=== PATIENT | female | born 2000 | race Caucasian/White ===

== ENCOUNTER 2018-12-16 18:01 | Emergency (ER) | payer MEDICAID ==
[2018-12-16 18:35] VITALS: BP 143/83
--- NOTE | 2018-12-16 18:41 | EDM.PDOC ---
ED HPI GENERAL MEDICAL PROBLEM - General Chief Complaint: ENT Problem Stated Complaint: LEFT EAR PAIN Time Seen by Provider: 12/16/18 18:37 Source of Information: Reports: Patient History Limitations: Reports: No Limitations - History of Present Illness INITIAL COMMENTS - FREE TEXT/NARRATIVE: pt arrived with pain in the left ear. @-3 days ago she had a sore throat. She has not checked her temp. Onset: Other (started 3 days ago. ) Duration: Hour(s): Location: Reports: Face, Neck Associated Symptoms: Reports: No Other Symptoms, Cough - Related Data Allergies Allergy/AdvReac Type Severity Reaction Status Date / Time No Known Allergies Allergy Verified 12/16/18 18:30 Home Meds: Home Meds NK [No Known Home Meds] 01/12/14 [History] Past Medical History - Past Health History Medical/Surgical History: Denies Medical/Surgical History Other Gastrointestinal History: Hernia - Past Surgical History GI Surgical History: Reports: Hernia, Abdominal Social & Family History - Tobacco Use Smoking Status *Q: Never Smoker ED ROS ENT - Review of Systems Review Of Systems: See Below Constitutional: Reports: Chills HEENT: Reports: Ear Pain, Other (pt has been having pain in the left ear. ) Respiratory: Reports: No Symptoms Cardiovascular: Reports: No Symptoms Endocrine: Reports: No Symptoms GI/Abdominal: Reports: No Symptoms : Reports: No Symptoms Musculoskeletal: Reports: No Symptoms Skin: Reports: No Symptoms ED EXAM, ENT - Physical Exam Exam: See Below Text/Narrative:: pt arrived with pain in the left ear and a sore throat that started 3 daysago. Exam Limited By: No Limitations General Appearance: Alert, Moderate Distress Ears: Other ( left drum is not red but there is a small amount of fluid behind the drum) Nose: Normal Inspection Mouth/Throat: Tonsillar Erythema, Tonsillar Exudates Head: Atraumatic Neck: Lymphadenopathy (L) Respiratory/Chest: No Respiratory Distress Cardiovascular: Regular Rate, Rhythm Course - Vital Signs Last Recorded V/S: Last Vital Signs Temp 36.8 C 12/16/18 18:34 Pulse 82 12/16/18 18:34 Resp 14 12/16/18 18:34 BP 143/83 H 12/16/18 18:34 Pulse Ox 98 12/16/18 18:34 - Orders/Labs/Meds Orders: Active Orders 24 hr Category Date Time Status CULTURE STREP A CONFIRMATION [RM] Stat Lab 12/16/18 18:43 Results STREP SCRN A RAPID W CULT CONF [RM] Stat Lab 12/16/18 18:43 Results Labs: Laboratory Tests 12/16/18 Range/Units 18:37 WBC 8.3 (4.5-11.0) K/uL RBC 4.99 (3.30-5.50) M/uL Hgb 13.8 (12.0-15.0) g/dL Hct 41.7 (36.0-48.0) % MCV 84 (80-98) fL MCH 28 (27-31) pg MCHC 33 (32-36) % Plt Count 306 (150-400) K/uL Neut % (Auto) 59 (36-66) % Lymph % (Auto) 29 (24-44) % [place]ley % (Auto) 11 H (2-6) % Eos % (Auto) 2 (2-4) % Baso % (Auto) 0 (0-1) % - Re-Assessments/Exams Free Text/Narrative Re-Assessment/Exam: 12/16/18 19:00 pt had a neg strept and a normal wbc. Departure - Departure Time of Disposition: 19:01 Disposition: Home, Self-Care 01 Condition: Fair Clinical Impression: Serous otitis media - Discharge Information Referrals: Maximiliano Jones MD [Primary Care Provider] - Forms: ED Department Discharge Care Plan Goals: cool mist humidifier, push fluids, Motrin 600mg q6h prn for pain in the left ear , amoxicillin 500mg tid for 10 day, tonight try to get 2 doses in. While on antibuiotics us yogurt or probiotic. - My Orders Last 24 Hours: My Active Orders 12/16/18 18:43 CULTURE STREP A CONFIRMATION [RM] Stat STREP SCRN A RAPID W CULT CONF [RM] Stat - Assessment/Plan Last 24 Hours: My Active Orders 12/16/18 18:43 CULTURE STREP A CONFIRMATION [RM] Stat STREP SCRN A RAPID W CULT CONF [RM] Stat
== END 2018-12-16 19:10 | disposition home or self-care (01) ==
LOC: JP.ED 18:01
DX: H65.92 Unspecified nonsuppurative otitis media, left ear (principal)
CPT/HCPCS: 36415; 85025; 87081; 87430; 99283

== ENCOUNTER 2019-06-22 05:45 | Day surgery (SDC) | payer MEDICAID ==
[2019-06-22] MEDS ORDERED: Dextrose 5%-Lactated Ringers 1,000 ML IV SCH (06:00)
[2019-06-22] MEDS ORDERED: Glycopyrrolate 0.2 MG/ML 2 ML SDV IVPUSH ONE (06:30)
[2019-06-22] MEDS ORDERED: Propofol 200 MG/20 ML SDV ONE (07:06)
[2019-06-22] MEDS ORDERED: fentaNYL 100 MCG/2 ML SDV ONE (07:06)
[2019-06-22] MEDS ORDERED: Midazolam 1 MG/ML 2 ML SDV ONE (07:06)
[2019-06-22 11:02] VITALS: BP 114/71; PULSE 88
--- NOTE | 2019-06-28 12:21 | OR ---
DATE OF PROCEDURE: 06/22/2019 SURGEON: Anastacio Valladares MD PREOPERATIVE DIAGNOSES: Epigastric discomfort and nausea. POSTOPERATIVE DIAGNOSES: Epigastric discomfort and nausea associated with, 1. Large gastric bezoar. 2. Mild antral gastritis. OPERATIVE PROCEDURE: Esophagogastroduodenoscopy with biopsies of antrum for CLOtest. ANESTHESIA: IV sedation. INDICATION FOR PROCEDURE: The patient presents with ongoing epigastric discomfort and nausea. She presently has been on Protonix 40 mg daily, but has not taken that now since around 06/01/2019. She also had previously been prescribed Zofran, which she has also not taken since around 06/08/2019. The plan is to proceed with upper GI endoscopy with biopsies as indicated. Potential risks including bleeding and perforation were discussed, and the patient wishes to proceed. DETAILS OF PROCEDURE: The patient was taken to the operating room and placed in a left lateral decubitus position. IV sedation was administered, after which the upper GI endoscope was passed orally through the length of the esophagus and into the stomach with retroflexion view of the fundus, and thereafter through the pyloric channel and into the junction of the third and fourth portions of the duodenum. Findings included normal hypopharynx, larynx, upper esophageal sphincter, and esophageal body. At the EG junction, no significant hiatal hernia or inflammation was noted. As one entered the stomach, the patient did have a quite striking large gastric bezoar. This appeared to be predominantly a phytobezoar, i.e., old matter aggregated into loose mass affect. This was associated with some redness in the antrum. The pyloric channel was widely open, i.e., there was no evidence of any gastric outlet obstruction, and the visualized portions of the duodenum were unremarkable. At this point, biopsies were obtained from the antrum and sent for CLOtest for H pylori. Minimal bleeding from the biopsy sites was seen, and the procedure then concluded. 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 We will have Dietary review the anti-bezoar diet with the patient and mother, and also prescribe the patient Zithromax 125 mg daily to augment GI tract motility. We will see the patient back in 1 month for a repeat upper endoscopy to see if the bezoar has been eliminated, at which time, we might try getting off some of the medical management such as Zithromax and/or Protonix based on those findings, with the assumption that the modification to diet might at that point be adequate. Anastacio Valladares MD /[id number]
== END 2019-06-22 09:00 | disposition home or self-care (01) ==
LOC: JP.SDS 05:45
PROVIDERS: ATTEND Surgery
DX: T18.2XXA Foreign body in stomach, initial encounter (principal); K29.70 Gastritis, unspecified, without bleeding; F32.9 Major depressive disorder, single episode, unspecified; E66.9 Obesity, unspecified; Z91.040 Latex allergy status; Z68.34 Body mass index [BMI] 34.0-34.9, adult
CPT/HCPCS: 43239; 87081; J2250; J2704; J3010; J3490; J7042

== ENCOUNTER → 2019-07-23 | Day surgery (SDC) | payer MEDICAID ==
[~2019-07-23] MED LIST: Dextrose 5%-Lactated Ringers 1,000 ML IV SCH; Glycopyrrolate 0.2 MG/ML 2 ML SDV IVPUSH ONE; Midazolam 1 MG/ML 2 ML SDV ONE; Propofol 200 MG/20 ML SDV ONE; fentaNYL 100 MCG/2 ML SDV ONE
[2019-07-23 09:09] VITALS: BP 112/76; PULSE 78
--- NOTE | 2019-08-03 12:50 | OR ---
DATE OF PROCEDURE: 07/23/2019 SURGEON: Anastacio Valladares MD PREOPERATIVE DIAGNOSIS: History of gastric bezoar. POSTOPERATIVE DIAGNOSES: 1. Persistent gastric bezoar. 2. Antral gastritis. OPERATIVE PROCEDURES: Esophagogastroduodenoscopy with: 1. Evacuation of gastric bezoar (69158). 2. Biopsy of the antrum for CLOtest ([id number]). ANESTHESIA: IV sedation. INDICATIONS FOR PROCEDURE: This is a 19-year-old female presenting with history of gastric bezoar diagnosed several weeks ago. She has been on anti-bezoar diet and has been prescribed some proton pump inhibitor for the upper abdominal discomfort, but has not been taking that regularly. She remains nauseated with some vague upper abdominal discomfort. Plan is to proceed with upper GI endoscopy with biopsies and/or dilation as indicated, along with potential evacuation of the gastric bezoar. Potential risks of the procedure including bleeding, perforation, possibility of aspiration of gastric contents during the procedure were gone over, and the patient wishes to proceed. DETAILS OF PROCEDURE: The patient was taken to the operating room, placed in a left lateral decubitus position. IV sedation was administered, after which the upper GI endoscope was passed orally through the length of the esophagus and into the stomach with retroflexion view of the fundus, and thereafter through the pyloric channel to the junction of the third and fourth portions of the duodenum. Findings included normal hypopharynx, larynx, upper esophageal sphincter, and esophageal body. At the EG junction, no significant hiatal hernia was evident and there was minimal, if any, post inflammation. Within the stomach, there was some persistent bezoar. This appeared to be somewhat less in terms of volume compared to previous exam. This was associated with patchy redness in the antrum. Otherwise, the gastric exam was unremarkable, as was the pyloric channel and the visualized portions of the duodenum. At this point, the bezoar was potentially broken up and manipulated into the duodenum through the pyloric channel with virtually all of the bezoar except for few fragments being evacuated. Biopsies obtained from the antrum and sent for CLOtest for H. pylori. Minimal bleeding from the biopsy site was seen and the procedure was then concluded. The patient will return for a nuclear medicine gastric emptying study later this week. She will be instructed to stay off the Zithromax until after the gastric emptying study has been completed, so as to avoid making the interpretation of the exam less straightforward, and we will see the patient back after the gastric emptying exam is done. Specifically, we will see her in followup on 07/25/2019. Anastacio Valladares MD /[id number]
== END ==
LOC: JP.SDS 05:23
PROVIDERS: ATTEND Surgery
DX: T18.2XXA Foreign body in stomach, initial encounter (principal); K29.70 Gastritis, unspecified, without bleeding; K21.9 Gastro-esophageal reflux disease without esophagitis; E66.9 Obesity, unspecified; Z91.040 Latex allergy status; Z68.33 Body mass index [BMI] 33.0-33.9, adult
CPT/HCPCS: 43239; 43247; 81025; 87081; J2250; J2704; J3010; J3490; J7042

== ENCOUNTER 2020-06-20 07:27 | Day surgery (SDC) | payer MEDICAID ==
[~2020-06-20 07:27] MED LIST changes: +Dexamethasone 4 MG/ML SDV ONE; -Dextrose 5%-Lactated Ringers 1,000 ML IV SCH; -Glycopyrrolate 0.2 MG/ML 2 ML SDV IVPUSH ONE; +Glycopyrrolate 0.2 MG/ML 5 ML MDV ONE; +Meropenem 500 MG SDV ONE; -Midazolam 1 MG/ML 2 ML SDV ONE; +Neostigmine Methylsulfate 1 MG/ML 5 ML Syringe ONE; +Ondansetron 4 MG/2 ML SDV ONE; +Rocuronium 50 MG/5 ML Vial ONE; -fentaNYL 100 MCG/2 ML SDV ONE; +fentaNYL 250 MCG/5 ML SDV ONE
[2020-06-20] MEDS ORDERED: Acetaminophen 500 MG Tab PO ONE (07:45)
[2020-06-20] MEDS ORDERED: Ketorolac 60 MG/2 ML SDV ONE (08:07)
[2020-06-20] MEDS ORDERED: Dextrose 5%-Lactated Ringers 1,000 ML IV SCH (08:15)
[2020-06-20] MEDS ORDERED: fentaNYL 100 MCG/2 ML SDV ONE (08:39)
[2020-06-20] MEDS ORDERED: Bupivacaine 0.5%/EPINEPHrine 1:200,000 50 ML MDV ONE (08:43)
[2020-06-20] MEDS ORDERED: ceFAZolin 2 GM in Premix Bag 1 BAG IV ONE (08:45)
[2020-06-20] MEDS ORDERED: Ketamine 500 MG/5 ML MDV IV SCH (09:00)
[2020-06-20] MEDS ORDERED: Ketamine 50 MG in Sodium Chloride 0.9% 49.5 ML IV SCH (09:00)
[2020-06-20] MEDS ORDERED: Lactated Ringers 1,000 ML ONE (09:18)
[2020-06-20] MEDS ORDERED: Naloxone 0.4 MG/ML SDV ONE (09:30)
[2020-06-20] MEDS ORDERED: Acetaminophen/HYDROcodone 325-5 MG Tab PO ONE (10:23)
[2020-06-20 11:13] VITALS: BP 112/72; PULSE 83
--- NOTE | 2020-06-25 13:32 | OR ---
DATE OF PROCEDURE: 06/20/2020 SURGEON: Anastacio Valladares MD PREOPERATIVE DIAGNOSIS: Incarcerated recurrent umbilical hernia. POSTOPERATIVE DIAGNOSES: 1. Incarcerated recurrent umbilical hernia. 2. Extensive intraabdominal adhesions. OPERATIVE PROCEDURE: Diagnostic laparoscopy with: 1. Repair of incarcerated recurrent umbilical hernia with mesh ([id number]). 2. Placement of Interceed mesh to limit recurrent adhesion formation between the abdominal and pelvic wall and underlying viscera. ANESTHESIA: General. GLASS BLOWING LATHE OPERATOR: Nikki Wilson PA-C INDICATIONS FOR PROCEDURE: This is a 20-year-old presenting with recurrent umbilical hernia which was previously repaired with an open approach. Plan is to proceed with laparoscopic or, if necessary, open approach with repair of this with mesh. Potential risks including bleeding, infection, injury to underlying viscera, problems with mesh becoming infected, or the hernia recurring were reviewed, and the patient wishes to proceed. DETAILS OF PROCEDURE: The patient was taken to the operating room and placed in a supine position. After general endotracheal anesthesia was induced, Mai catheter was inserted (this was removed at the end of the procedure), and the abdomen prepped and draped. In the left lateral abdomen, a transverse incision was made and the peritoneal cavity entered under direct vision with an Optiview trocar and inflated to 15 mmHg pressure with CO2. Two additional left-sided 5 mm trocars were then placed and the abdomen examined. There was quite a bit in the way of adhesions between the omentum and the overlying abdominal wall, including the area of the previous hernia site. These were taken down with the Harmonic scalpel. At this point, using a combination of Harmonic scalpel starting from within and external pressure, the incarcerated hernia was reduced. This contained some omentum, as well as preperitoneal fat, and the hernia contents were excised and sent for pathologic exam. The defect itself was fairly small, measuring around 1 cm. Given this, about a [address] mesh with balloon positioning system was selected. This was soaked in antibiotic-containing saline solution and placed in intraperitoneal location through a small stab wound just below the umbilicus. The inflation catheter was brought through the abdominal wall and the balloon inflated, thus bringing the mesh up against the abdominal wall. It was then affixed circumferentially with absorbable tacking screws. The balloon was then deflated and withdrawn. Good fixation of the mesh was confirmed. To limit recurrent adhesion formation, Interceed mesh was then placed underneath the newly placed mesh, as well as along the lower abdomen and pelvis, thus displacing those surfaces from the underlying viscera. The trocars were then sequentially removed. The fascia at the 12 mm site was closed with 0 Vicryl stitch at the fascial level, and at each incision, 4-0 Vicryl skin stitch was used. Prior to closure, bilateral transversus abdominis plane blocks had been placed and the incisions were all anesthetized with 0.5% Marcaine. The patient was taken to the recovery room in satisfactory condition. Physician residential real estate assistant, Nikki Wilson, played an essential role in assisting in this case, helping to position the patient, retract structures as needed, as well as suturing and cutting sutures when indicated. Her presence improved the patient's safety and decreased operative time. Anastacio Valladares MD /[id number]
== END 2020-06-20 11:30 | disposition home or self-care (01) ==
LOC: JP.SDS 07:27
PROVIDERS: ATTEND Surgery
DX: K42.0 Umbilical hernia with obstruction, without gangrene (principal); E66.9 Obesity, unspecified; G47.00 Insomnia, unspecified; Z98.890 Other specified postprocedural states; Z87.891 Personal history of nicotine dependence; Z91.040 Latex allergy status; Z68.33 Body mass index [BMI] 33.0-33.9, adult; Z79.899 Other long term (current) drug therapy
CPT/HCPCS: 36415; 49653; 80048; 81025; 83735; 84100; 85027; 88302; A9270; C1713; C1781; J0171; J0690; J1100; J1885; J2020; J2185; J2310; J2405; J2704; J2710; J2795; J3010; J3490; J7050; J7120; J7121

== ENCOUNTER 2021-02-25 04:35 | Inpatient (IN) | payer MEDICAID ==
[2021-02-25] MEDS ORDERED: Sodium Chloride 0.9% 1,000 ML IV ONE (05:43)
[2021-02-25] MEDS ORDERED: Ondansetron 4 MG/2 ML SDV IVPUSH ONE (05:43)
[2021-02-25] MEDS ORDERED: Misoprostol 50 MCG (1/2 of 100 MCG) Tab VAG ONE ×2 (07:40→11:38)
[2021-02-25] MEDS ORDERED: Misoprostol 50 MCG (1/2 of 100 MCG) Tab ONE (07:41)
[2021-02-25] MEDS ORDERED: Sodium Chloride 0.9% 10 ML Syringe FLUSH PRN (07:50)
[2021-02-25] MEDS ORDERED: fentaNYL 100 MCG/2 ML SDV IVPUSH PRN (07:50)
[2021-02-25] MEDS ORDERED: Penicillin G Potassium 5 MILLUNITS in Sodium Chloride 0.9% 100 ML IV ONE (08:00)
--- NOTE | 2021-02-25 08:01 | PCM.LDHP ---
L&D History of Present Illness - General Date of Service: 02/25/21 (induction of labor. ) Admit Problem/Dx: Patient Status Order with Admit Dx/Problem 02/25/21 07:50 Patient Status [ADT] Routine Admission Diagnosis/Problem Admission Diagnosis/Problem and not yet delivered Source of Information: Patient History Limitations: Reports: No Limitations - History of Present Illness Introduction:: Has not felt well for several days. naif on and off, lost mucous plug. Baby moving. has a cough and nauseated. Timing/Duration: Reports: intermittent Location, : Reports: Abdomen Severity: Mild Improves with: Reports: None Worsens with: Reports: None - Related Data Allergies/Adverse Reactions: Allergies Allergy/AdvReac Type Severity Reaction Status Date / Time latex Allergy Rash Verified 02/14/21 17:59 Home Medications: Home Meds Metoclopramide HCl [Reglan] 10 mg PO TIDAC PRN 06/18/20 [History] Ondansetron [Zofran ODT] 4 mg PO Q8H PRN 06/18/20 [History] Pnv No.95/Ferrous Fum/Folic AC [ Caplet] 1 tab PO DAILY 02/14/21 [History] Past Medical History - Past Health History Medical/Surgical History: Denies Medical/Surgical History HEENT History: Reports: Impaired Vision, Other (See Below) Other HEENT History: wears glasses Cardiovascular History: Reports: None Respiratory History: Reports: None Gastrointestinal History: Reports: GERD Other Gastrointestinal History: Hernia Genitourinary History: Reports: UTI, Recurrent ENVIRONMENTAL HEALTH SAFETY MANAGER History: Reports: None, : 1 Para: 0 LMP (Approximate): (MARILEE 03/01/21 39 4/7) Musculoskeletal History: Reports: Back Pain, Chronic Neurological History: Reports: None Psychiatric History: Reports: Anxiety, Depression Endocrine/Metabolic History: Reports: Obesity/BMI 30+ Hematologic History: Reports: None Immunologic History: Reports: None Oncologic (Cancer) History: Reports: None Dermatologic History: Reports: None - Infectious Disease History Infectious Disease History: Reports: Chicken Pox - Past Surgical History HEENT Surgical History: Reports: None GI Surgical History: Reports: EGD, Hernia, Abdominal Female Surgical History: Reports: None Endocrine Surgical History: Reports: None Musculoskeletal Surgical History: Reports: None Dermatological Surgical History: Reports: None Social & Family History - Family History Family Medical History: No Pertinent Family History - Caffeine Use Caffeine Use: Reports: Soda H&P Review of Systems - Review of Systems: Review Of Systems: See Below General: Reports: No Symptoms HEENT: Reports: No Symptoms Pulmonary: Reports: Cough Cardiovascular: Reports: No Symptoms Gastrointestinal: Reports: Nausea Genitourinary: Reports: No Symptoms Musculoskeletal: Reports: No Symptoms Skin: Reports: No Symptoms Psychiatric: Reports: No Symptoms Neurological: Reports: No Symptoms Hematologic/Lymphatic: Reports: No Symptoms Immunologic: Reports: No Symptoms L&D Exam - Exam Exam: See Below - Vital Signs Vital Signs: Last Vital Signs Temp 98.7 F 02/25/21 07:17 Pulse 75 02/25/21 07:17 Resp 16 02/25/21 07:17 BP 120/84 02/25/21 07:17 Pulse Ox 98 02/25/21 07:17 - OB Specific Contraction Duration (sec): 40 Contraction Frequency (min): x1 Contraction Intensity: Mild Movement: Active Heart Tones: Present Heart Rate (FHR) Variability: Moderate (6-25 bmp) Presentation: Vertex Estimated Weight: 7 pounds - Nguyen Score Nguyen Score Cervix Position: Midposition Nguyen Score Consistency: Soft Nguyen Score Effacement: >80% Nguyen Score Dilation: 3-4 cm Nguyen Score Infant's Station: -1 ,0 Nguyen Score Total: 10 - Exam General: Alert, Oriented HEENT: PERRLA, Mucosa Moist & [place] Neck: Supple Lungs: Clear to Auscultation, Normal Respiratory Effort Cardiovascular: Regular Rate, Regular Rhythm GI/Abdominal Exam: Soft, Non-Tender Genitourinary: Normal external exam, Cervical dilitation, Enlarged uterus Back Exam: Normal Inspection Extremities: No Pedal Edema, Normal Capillary Refill Skin: Warm, Dry Neurological: Cranial Nerves Intact Psychiatric: Alert, Normal Affect, Normal Mood - Patient Data Lab Results Last 24 hrs: Laboratory Results - last 24 hr 02/25/21 Range/Units 04:41 Urine Color Yellow (YELLOW) Urine Appearance Cloudy A (CLEAR) Urine pH 6.0 (5.0-8.0) Ur Specific [place] 1.020 (1.008-1.030) Urine Protein 30 H (NEGATIVE) mg/dL Urine Glucose (UA) Negative (NEGATIVE) mg/dL Urine Ketones >=160 H (NEGATIVE) mg/dL Urine Occult Blood Small H (NEGATIVE) Urine Nitrite Negative (NEGATIVE) Urine Bilirubin Moderate H (NEGATIVE) Urine Urobilinogen 2.0 H (0.2-1.0) EU/dL Ur Leukocyte Esterase Small H (NEGATIVE) Urine RBC 0-5 (0-5) Urine WBC 0-5 (0-5) Ur Epithelial Cells Many Amorphous Sediment Not seen Urine Bacteria Few Urine Mucus Not seen - Problem List (1) SNOMED Code(s): 60115324 ICD Code: Z34.90 - ENCNTR FOR SUPRVSN OF NORMAL , UNSP, UNSP TRIMESTER Status: Acute Current Visit: Yes Qualifiers: Weeks of gestation: 39 weeks Qualified Code(s): Z3A.39 - 39 weeks gestation of (2) GBS (group B Streptococcus carrier), +RV culture, currently SNOMED Code(s): 2047170209829, 825971377, 6690811626421 ICD Code: O99.820 - STREPTOCOCCUS B CARRIER STATE COMPLICATING Status: Acute Current Visit: Yes (3) Cough SNOMED Code(s): 80989344 ICD Code: R05 - COUGH Status: Acute Current Visit: Yes Problem List Initiated/Reviewed/Updated: Yes Orders Last 24hrs: Active Orders 24 hr Category Date Time Status Patient Status [ADT] Routine ADT 02/25/21 07:50 Ordered Antiembolic Devices [RC] .Routine Care 02/25/21 07:54 Ordered Communication Order [RC] ASDIRECTED Care 02/25/21 07:50 Ordered Heart Tones [RC] PER UNIT ROUTINE Care 02/25/21 07:50 Ordered Non Stress Test [RC] Click to Edit Care 02/25/21 07:50 Ordered Notify Provider Vital Signs [RC] PRN Care 02/25/21 07:50 Ordered Notify Provider [RC] PRN Care 02/25/21 07:50 Ordered OB Check [OM.PC] Click to Edit Care 02/25/21 04:40 Ordered Up ad Joanie [RC] ASDIRECTED Care 02/25/21 07:50 Ordered VTE/DVT Education [RC] Click to Edit Care 02/25/21 07:54 Ordered Vital Signs [RC] PER UNIT ROUTINE Care 02/25/21 07:50 Ordered CBC W/O DIFF,HEMOGRAM [HEME] Routine Lab 02/25/21 07:50 Ordered DRUG SCREEN, URINE [URCHEM] Routine Lab 02/25/21 07:50 Ordered Oxytocin/Normal Saline [Pitocin in NS 20 Units/1,000 ML Med 02/25/21 07:49 Ordered ] 20 unit in 1,000 ml IV ONETIME Penicillin G Potassium [Pfizerpen] 2.5 millunits Med 02/25/21 08:00 Ordered Sodium Chloride 0.9% [Normal Saline] 50 ml IV Q4H Penicillin G Potassium [Pfizerpen] 5 millunits Med 02/25/21 07:48 Ordered Sodium Chloride 0.9% [Normal Saline] 100 ml IV ONETIME Sodium Chloride 0.9% [Saline Flush] Med 02/25/21 07:50 Ordered 10 ml FLUSH ASDIRECTED PRN fentaNYL [Sublimaze] Med 02/25/21 07:50 Ordered 100 mcg IVPUSH Q1H PRN miSOPROStoL [Cytotec] Med 02/25/21 07:40 Once 50 mcg VAG ONETIME ONE DVT/VTE Prophylaxis Reflex [OM.PC] Routine Oth 02/25/21 07:50 Ordered Saline Lock Insert [OM.PC] Routine Oth 02/25/21 07:50 Ordered Resuscitation Status Routine Resus Stat 02/25/21 07:50 Ordered Medication Orders Penicillin G Potassium 5 (millunits/ Sodium Chloride) 100 mls @ 200 mls/hr IV ONETIME ONE Stop: 02/25/21 08:29 Penicillin G Potassium 2.5 (millunits/ Sodium Chloride) 50 mls @ 100 mls/hr IV Q4H JAMES Oxytocin/Sodium Chloride (Pitocin In Ns 20 Units/1,000 Ml) 20 unit in 1,000 mls @ 999 mls/hr IV ONETIME ONE; Protocol Stop: 02/25/21 08:49 Misoprostol (Misoprostol 50 Mcg (1/2 Of 100 Mcg) Tab) 50 mcg VAG ONETIME ONE Stop: 02/25/21 07:41 Assessment/Plan Comment:: 02/25/21 39 4/7 week IUP latent labor, reactive NST, CE: 3/80/-1 soft mid position, bishops score 10 cough and not feeling well for days GBS positive ABO O neg, had Rhogam at 29 weeks She would like to have the baby Plan Misoprostol this morning AROM after lunch Treat GBS rehydrate monitor for active labor
[2021-02-25] MEDS ORDERED: Sodium Chloride 0.9% 500 ML IV ONE (09:00)
[2021-02-25] MEDS ORDERED: Ondansetron 4 MG/2 ML SDV IVPUSH PRN (10:04)
[2021-02-25] MEDS: Penicillin G Potassium 2.5 MILLUNITS in Sodium Chloride 0.9% 50 ML IV SCH ×2 (12:04→19:13)
--- NOTE | 2021-02-25 12:05 | PCM.PNLD ---
Labor Progress Note - VS & Meds Vital Signs: Last Vital Signs Temp 98.7 F 02/25/21 07:17 Pulse 75 02/25/21 07:17 Resp 16 02/25/21 07:17 BP 120/84 02/25/21 07:17 Pulse Ox 98 02/25/21 07:17 Active Medications: Current Medications Fentanyl (Fentanyl 100 Mcg/2 Ml Sdv) 100 mcg IVPUSH Q1H PRN PRN Reason: Pain (moderate 4-6) Penicillin G Potassium 2.5 (millunits/ Sodium Chloride) 50 mls @ 100 mls/hr IV Q4H JAMES Ondansetron HCl (Ondansetron 4 Mg/2 Ml Sdv) 4 mg IVPUSH Q4H PRN PRN Reason: Nausea/Vomiting Last Admin: 02/25/21 10:28 Dose: 4 mg Documented by: Sodium Chloride (Sodium Chloride 0.9% 10 Ml Syringe) 10 ml FLUSH ASDIRECTED PRN PRN Reason: Keep Vein Open Discontinued Medications Sodium Chloride (Normal Saline) 1,000 mls @ 999 mls/hr IV .BOLUS ONE Stop: 02/25/21 06:43 Last Admin: 02/25/21 05:53 Dose: 999 mls/hr Documented by: Penicillin G Potassium 5 (millunits/ Sodium Chloride) 100 mls @ 200 mls/hr IV ONETIME ONE Stop: 02/25/21 08:29 Last Admin: 02/25/21 08:14 Dose: 200 mls/hr Documented by: Oxytocin/Sodium Chloride (Pitocin In Ns 20 Units/1,000 Ml) 20 unit in 1,000 mls @ 999 mls/hr IV ONETIME ONE; Protocol Stop: 02/25/21 08:49 Sodium Chloride (Normal Saline) 500 mls @ 500 mls/hr IV .BOLUS ONE Stop: 02/25/21 09:59 Misoprostol (Misoprostol 50 Mcg (1/2 Of 100 Mcg) Tab) Confirm Administered Dose 50 mcg .ROUTE .STK-MED ONE Stop: 02/25/21 07:42 Last Admin: 02/25/21 08:14 Dose: Not Given Documented by: Misoprostol (Misoprostol 50 Mcg (1/2 Of 100 Mcg) Tab) 50 mcg VAG ONETIME ONE Stop: 02/25/21 07:41 Last Admin: 02/25/21 07:45 Dose: 50 mcg Documented by: Misoprostol (Misoprostol 50 Mcg (1/2 Of 100 Mcg) Tab) 25 mcg VAG ONETIME ONE Stop: 02/25/21 11:39 Ondansetron HCl (Ondansetron 4 Mg/2 Ml Sdv) 4 mg IVPUSH ONETIME ONE Stop: 02/25/21 05:44 Last Admin: 02/25/21 05:55 Dose: 4 mg Documented by: - Uterine Contractions Uterine Monitoring Mode: External [place] Contraction Frequency (min): 2-8 Contraction Duration (sec): 40-70 Contraction Intensity: Mild Uterine Resting Tone: Soft - Monitoring Monitor Mode: Doppler/Auscultation Heart Rate (FHR) Baseline: 120 Heart Rate (FHR) Variability: Moderate (6-25 bmp) Accelerations: Present, 15x15 Decelerations: None Strip Review: Category I - Vaginal Exam Dilation (cm): 4 Effacement (Percent): 90 Station: 0 Cervical Position: Midposition Sterile Vaginal Exam Performed By: Wendy Gonzalez Vaginal Exam Comment: AROM clear fluid - Labor Progress (Free Text) Labor Progress: Cat one strip baseline FHT 120 CE 4-90-0 AROM clear fluid Can be up and about Nitrous for pain management Plan for vaginal delivery
[2021-02-25] MEDS ORDERED: Lidocaine 1% 50 ML MDV ONE (14:39)
[2021-02-25] MEDS ORDERED: Hydrocortisone 2.5% Crm 30 GM Tube TOP PRN (15:15)
--- NOTE | 2021-02-25 15:28 | PCM.DEL ---
L & D Note - General Info Date of Service: 02/25/21 Mother's Due Date: 03/01/21 - Delivery Note Labor: Spontaneous Cervical Ripening Method: Misoprostil Delivery Outcome: Livebirth Delivery Method: Spontaneous Vaginal Delivery-Single Infant Delivery Mode: Spontaneous Presentation: Vertex Nuchal Cord: None Anesthesia Type: Nitrous Oxide Anesthetic: Lidocaine (Xylocaine) 1% Plain Local Anesthetic Volume: 4cc Amniotic Fluid Description: Clear Episiotomy Type: None Laceration: 2nd Degree, Perineal Suture type: Vicryl Suture size: 3-0 Placenta: Intact, Spontaneous Cord: 3 Vessels Estimated Blood Loss: 200 Resuscitation Needed: Yes : Bulb Syringe, Stimulated, Warmed, [place] Used, Warmer Used Provider: Wendy Gonzalez Score 1 min: 8 Score 5 min: 9 Second Stage Interventions: Reports: Second Nurse Reviewed Heart Tones, Pushing Effectively, Pushing, McRobert's Position Delivery Comments (Free Text/Narrative):: This 21 year old G1 who is 30 4/7 delivered via at 1434 in JUAN LUIS position a viable male infant. He was placed on mother;s abdomen where he was dried and stimulated. No cry so cord was clamped and cut and he was taken to the warmer and had about 15 seconds of PPV, cried spontaneously and and had Apgars of 8 and 9. color and breathing at one minute, color at 5 minutes. Three vessel cord weight 7-2. The placenta was expressed spontaneously intact orlin. Perineal tear with repair of 2nd degree. 3-0 vicryl in standard fashion. No lacerations of cervix, rectum, vagina, EBL 200cc Mother and baby to post in stable condition. first stage [id number] second stage 9685-5241 third stage 0710-1479 Induction Criteria - Nguyen Score Nguyen Score Dilation: 3-4 cm Nguyen Score Effacement: >80% Nguyen Score 's Station: -1 ,0 Nguyen Score Consistency: Soft Nguyen Score Cervix Position: Midposition Nguyen Score Total: 10 Nguyen Score Presenting Part: Reports: Cephalic - Induction Gestational Age >/= 39 wks: Yes Estimated Pelvis: Reports: Adequate Reassuring Monitoring Strip: Yes Absence of Tachy Systole: Yes - General Info Date of Service: 02/25/21 Admission Dx/Problem (Free Text): Patient Status Order with Admit Dx/Problem 02/25/21 07:50 Patient Status [ADT] Routine Admission Diagnosis/Problem Admission Diagnosis/Problem and not yet delivered Functional Status: Reports: Pain Controlled - Review of Systems General: Reports: No Symptoms HEENT: Reports: No Symptoms Pulmonary: Reports: No Symptoms Cardiovascular: Reports: No Symptoms Gastrointestinal: Reports: No Symptoms Genitourinary: Reports: No Symptoms Musculoskeletal: Reports: No Symptoms Skin: Reports: No Symptoms Neurological: Reports: No Symptoms Psychiatric: Reports: No Symptoms - Patient Data Vitals - Most Recent: Last Vital Signs Temp 98.7 F 02/25/21 07:17 Pulse 84 02/25/21 12:00 Resp 16 02/25/21 12:00 BP 118/74 02/25/21 12:00 Pulse Ox 97 02/25/21 12:00 Weight - Most Recent: 211 lb I&O - Last 24 Hours: Intake & Output 02/25/21 02/25/21 02/25/21 06:59 14:59 22:59 Output Total 250 Balance -250 Lab Results Last 24 Hours: Laboratory Results - last 24 hr 02/25/21 02/25/21 02/25/21 Range/Units 04:41 08:03 09:34 WBC 8.4 (4.5-11.0) K/uL RBC 4.96 (3.30-5.50) M/uL Hgb 13.7 (12.0-15.0) g/dL Hct 41.2 (36.0-48.0) % MCV 83 (80-98) fL MCH 28 (27-31) pg MCHC 33 (32-36) % Plt Count 267 (150-400) K/uL Urine Color Yellow (YELLOW) Urine Appearance Cloudy A (CLEAR) Urine pH 6.0 (5.0-8.0) Ur Specific [place] 1.020 (1.008-1.030) Urine Protein 30 H (NEGATIVE) mg/dL Urine Glucose (UA) Negative (NEGATIVE) mg/dL Urine Ketones >=160 H (NEGATIVE) mg/dL Urine Occult Blood Small H (NEGATIVE) Urine Nitrite Negative (NEGATIVE) Urine Bilirubin Moderate H (NEGATIVE) Urine Urobilinogen 2.0 H (0.2-1.0) EU/dL Ur Leukocyte Esterase Small H (NEGATIVE) Urine RBC 0-5 (0-5) Urine WBC 0-5 (0-5) Ur Epithelial Cells Many Amorphous Sediment Not seen Urine Bacteria Few Urine Mucus Not seen Urine Opiates Screen Negative (NEGATIVE) Ur Oxycodone Screen Negative (NEGATIVE) Urine Methadone Screen Negative (NEGATIVE) Ur Propoxyphene Screen Negative (NEGATIVE) Ur Barbiturates Screen Negative (NEGATIVE) Ur Tricyclics Screen Negative (NEGATIVE) Ur Phencyclidine Scrn Negative (NEGATIVE) Ur Amphetamine Screen Negative (NEGATIVE) U Methamphetamines Scrn Negative (NEGATIVE) Urine MDMA Screen Negative (NEGATIVE) U Benzodiazepines Scrn Negative (NEGATIVE) U Cocaine Metab Screen Negative (NEGATIVE) U Marijuana (THC) Screen Negative (NEGATIVE) Med Orders - Current: Current Medications Fentanyl (Fentanyl 100 Mcg/2 Ml Sdv) 100 mcg IVPUSH Q1H PRN PRN Reason: Pain (moderate 4-6) Last Admin: 02/25/21 14:49 Dose: 50 mcg Documented by: Penicillin G Potassium 2.5 (millunits/ Sodium Chloride) 50 mls @ 100 mls/hr IV Q4H JAMES Last Admin: 02/25/21 12:04 Dose: 100 mls/hr Documented by: Lidocaine HCl (Lidocaine 1% 50 Ml Mdv) 0 ml INJECT ONETIME ONE Stop: 02/25/21 15:31 Last Admin: 02/25/21 14:54 Dose: 50 ml Documented by: Ondansetron HCl (Ondansetron 4 Mg/2 Ml Sdv) 4 mg IVPUSH Q4H PRN PRN Reason: Nausea/Vomiting Last Admin: 02/25/21 10:28 Dose: 4 mg Documented by: Sodium Chloride (Sodium Chloride 0.9% 10 Ml Syringe) 10 ml FLUSH ASDIRECTED PRN PRN Reason: Keep Vein Open Discontinued Medications Sodium Chloride (Normal Saline) 1,000 mls @ 999 mls/hr IV .BOLUS ONE Stop: 02/25/21 06:43 Last Admin: 02/25/21 05:53 Dose: 999 mls/hr Documented by: Penicillin G Potassium 5 (millunits/ Sodium Chloride) 100 mls @ 200 mls/hr IV ONETIME ONE Stop: 02/25/21 08:29 Last Admin: 02/25/21 08:14 Dose: 200 mls/hr Documented by: Oxytocin/Sodium Chloride (Pitocin In Ns 20 Units/1,000 Ml) 20 unit in 1,000 mls @ 999 mls/hr IV ONETIME ONE; Protocol Stop: 02/25/21 08:49 Last Admin: 02/25/21 14:35 Dose: 999 mls/hr, 999 mls/hr Documented by: Sodium Chloride (Normal Saline) 500 mls @ 500 mls/hr IV .BOLUS ONE Stop: 02/25/21 09:59 Oxytocin/Sodium Chloride (Pitocin In Ns 20 Units/1,000 Ml) Confirm Administered Dose 20 unit in 1,000 mls @ as directed .ROUTE .STK-MED ONE Stop: 02/25/21 14:24 Last Admin: 02/25/21 14:47 Dose: Not Given Documented by: Lidocaine HCl (Lidocaine 1% 50 Ml Mdv) Confirm Administered Dose 100 ml .ROUTE .STK-MED ONE Stop: 02/25/21 14:40 Last Admin: 02/25/21 14:44 Dose: Not Given Documented by: Misoprostol (Misoprostol 50 Mcg (1/2 Of 100 Mcg) Tab) Confirm Administered Dose 50 mcg .ROUTE .STK-MED ONE Stop: 02/25/21 07:42 Last Admin: 02/25/21 08:14 Dose: Not Given Documented by: Misoprostol (Misoprostol 50 Mcg (1/2 Of 100 Mcg) Tab) 50 mcg VAG ONETIME ONE Stop: 02/25/21 07:41 Last Admin: 02/25/21 07:45 Dose: 50 mcg Documented by: Misoprostol (Misoprostol 50 Mcg (1/2 Of 100 Mcg) Tab) 25 mcg VAG ONETIME ONE Stop: 02/25/21 11:39 Last Admin: 02/25/21 12:11 Dose: Not Given Documented by: Ondansetron HCl (Ondansetron 4 Mg/2 Ml Sdv) 4 mg IVPUSH ONETIME ONE Stop: 02/25/21 05:44 Last Admin: 02/25/21 05:55 Dose: 4 mg Documented by: - Exam General: Alert, Oriented HEENT: Pupils Equal, Pupils Reactive Neck: Supple Lungs: Clear to Auscultation, Normal Respiratory Effort, Rhonchi Cardiovascular: Regular Rate GI/Abdominal Exam: Normal Bowel Sounds, Soft (Female) Exam: Cervical Dilatation, Enlarged Uterus, Vaginal Bleeding Back Exam: Normal Inspection Extremities: No Pedal Edema, Normal Capillary Refill Skin: Warm, Dry Neurological: No New Focal Deficit Psy/Mental Status: Alert, Normal Affect, Normal Mood - Problem List & Annotations (1) SNOMED Code(s): 91816401 Code(s): Z34.90 - ENCNTR FOR SUPRVSN OF NORMAL , UNSP, UNSP TRIMESTER Status: Acute Current Visit: Yes Qualifiers: Weeks of gestation: 39 weeks Qualified Code(s): Z3A.39 - 39 weeks gestation of (2) GBS (group B Streptococcus carrier), +RV culture, currently SNOMED Code(s): 0695383565103, 719904285, 9062319010765 Code(s): O99.820 - STREPTOCOCCUS B CARRIER STATE COMPLICATING Status: Acute Current Visit: Yes (3) Cough SNOMED Code(s): 86851041 Code(s): R05 - COUGH Status: Acute Current Visit: Yes (4) Normal vaginal delivery SNOMED Code(s): 69339575, 786391474 Code(s): O80 - ENCOUNTER FOR FULL-TERM UNCOMPLICATED DELIVERY Status: Acute Current Visit: Yes (5) Active labor at term SNOMED Code(s): 49253031 Code(s): GJO9268 - Status: Acute Current Visit: Yes (6) Second degree perineal laceration SNOMED Code(s): 7519113 Code(s): O70.1 - SECOND DEGREE PERINEAL LACERATION DURING DELIVERY Status: Acute Current Visit: Yes (7) Second degree perineal laceration during delivery SNOMED Code(s): 4553606 Code(s): O70.1 - SECOND DEGREE PERINEAL LACERATION DURING DELIVERY Status: Acute Current Visit: Yes - Problem List Review Problem List Initiated/Reviewed/Updated: Yes - My Orders Last 24 Hours: My Active Orders 02/25/21 07:50 Communication Order [RC] ASDIRECTED Heart Tones [RC] PER UNIT ROUTINE Non Stress Test [RC] Click to Edit Notify Provider Vital Signs [RC] PRN Notify Provider [RC] PRN Up ad Joanie [RC] ASDIRECTED Vital Signs [RC] PER UNIT ROUTINE Sodium Chloride 0.9% [Saline Flush] 10 ml FLUSH ASDIRECTED PRN fentaNYL [Sublimaze] 100 mcg IVPUSH Q1H PRN DVT/VTE Prophylaxis Reflex [OM.PC] Routine Saline Lock Insert [OM.PC] Routine Resuscitation Status Routine 02/25/21 07:54 Antiembolic Devices [RC] .Routine VTE/DVT Education [RC] Click to Edit 02/25/21 10:04 Ondansetron [Zofran] 4 mg IVPUSH Q4H PRN 02/25/21 12:00 Penicillin G Potassium [Pfizerpen] 2.5 millunits Sodium Chloride 0.9% [Normal Saline] 50 ml IV Q4H 02/25/21 12:02 Communication Order [RC] Per Unit Routine Communication Order [RC] Per Unit Routine Communication Order [RC] Per Unit Routine Nitrous Oxide Delivery [RC] ASDIRECTED Oxygen Therapy [RC] ASDIRECTED Pulse Oximetry [RC] ASDIRECTED Verify Patient Consent Obtain [RC] ASDIRECTED Vital Signs [RC] PER UNIT ROUTINE 02/25/21 15:15 Benzocaine [Jqaz-W-Rftgure 20% [place]] See Dose Instructions TOP Q4H ONE Hydrocortisone [Proctozone-HC 2.5% Crm] 1 gm TOP ASDIRECTED PRN Lanolin [Lansinoh HPA] 1 gm TOP ASDIRECTED ONE witch Mark [Tucks] 1 pad TOP ASDIRECTED ONE 02/25/21 15:16 Patient Status [ADT] Routine Vital Signs [RC] PFP 02/25/21 15:30 Lidocaine 1% [Xylocaine 1%] 0 ml INJECT ONETIME ONE 02/26/21 05:11 CBC W/O DIFF,HEMOGRAM [HEME] AM - Assessment Assessment:: 02/25/21 with perineal tear repaired, No other complications Male , - Plan Plan:: 02/25/21 39 4/7 week IUP latent labor, reactive NST, CE: 3/80/-1 soft mid position, bishops score 10 cough and not feeling well for days GBS positive ABO O neg, had Rhogam at 29 weeks She would like to have the baby Plan Misoprostol this morning AROM after lunch Treat GBS rehydrate monitor for active labor 02/25/21 Routine cares rhogam work up GBS positive 48 hour stay support
[2021-02-25] MEDS ORDERED: Lanolin 100% Cream 40 GM Tube TOP ONE (15:30)
[2021-02-25] MEDS ORDERED: Witch Hazel Medicated Pads 100/Jar TOP ONE (15:30)
[2021-02-25] MEDS ORDERED: Lidocaine 1% 50 ML MDV INJECT ONE (15:30)
[2021-02-25] MEDS ORDERED: Witch Hazel Medicated Pads 100/Jar TOP PRN (16:00)
[2021-02-25] MEDS ORDERED: Lanolin 100% Cream 40 GM Tube TOP PRN (16:00)
[2021-02-25] MEDS ORDERED: Benzocaine 20% Top Spray 56 GM Bottle TOP ONE (16:00)
[2021-02-25] MEDS ORDERED: Benzocaine 20% Top Spray 56 GM Bottle TOP PRN (16:00)
[2021-02-25] MEDS ORDERED: Acetaminophen 325 MG Tab, 50 Tab Bulk Bottle PO PRN (17:41)
[2021-02-25] MEDS ORDERED: Ibuprofen 200 MG Tab, 24 Tab Bulk Bottle PO PRN (17:42)
--- NOTE | 2021-02-26 08:53 | PCM.PNPP ---
- General Info Date of Service: 02/26/21 Functional Status: Reports: Pain Controlled - Review of Systems General: Reports: No Symptoms HEENT: Reports: No Symptoms Pulmonary: Reports: No Symptoms Cardiovascular: Reports: No Symptoms Gastrointestinal: Reports: No Symptoms Genitourinary: Reports: No Symptoms Musculoskeletal: Reports: No Symptoms Skin: Reports: No Symptoms Neurological: Reports: No Symptoms Psychiatric: Reports: No Symptoms - General Info Date of Service: 02/26/21 - Patient Data Vital Signs - Most Recent: Last Vital Signs Temp 36.3 C 02/26/21 04:05 Pulse 68 02/26/21 04:05 Resp 14 02/26/21 04:05 BP 115/72 02/26/21 04:05 Pulse Ox 97 02/26/21 04:05 Weight - Most Recent: 95.708 kg I&O - Last 24 Hours: Intake & Output 02/25/21 02/26/21 02/26/21 22:59 06:59 14:59 Intake Total 250 Balance 250 Lab Results - Last 24 Hours: Laboratory Results - last 24 hr 02/25/21 02/25/21 02/26/21 Range/Units 09:34 15:40 04:42 WBC 8.7 (4.5-11.0) K/uL RBC 4.11 (3.30-5.50) M/uL Hgb 11.4 L D (12.0-15.0) g/dL Hct 34.2 L (36.0-48.0) % MCV 83 (80-98) fL MCH 28 (27-31) pg MCHC 33 (32-36) % Plt Count 207 (150-400) K/uL Urine Opiates Screen Negative (NEGATIVE) Ur Oxycodone Screen Negative (NEGATIVE) Urine Methadone Screen Negative (NEGATIVE) Ur Propoxyphene Screen Negative (NEGATIVE) Ur Barbiturates Screen Negative (NEGATIVE) Ur Tricyclics Screen Negative (NEGATIVE) Ur Phencyclidine Scrn Negative (NEGATIVE) Ur Amphetamine Screen Negative (NEGATIVE) U Methamphetamines Scrn Negative (NEGATIVE) Urine MDMA Screen Negative (NEGATIVE) U Benzodiazepines Scrn Negative (NEGATIVE) U Cocaine Metab Screen Negative (NEGATIVE) U Marijuana (THC) Screen Negative (NEGATIVE) Blood Type O NEGATIVE Cord Blood Type Cancelled Gel Antibody Screen Negative Cord Bld PATRIC Cancelled Rhogam Indicated Yes, baby rh pos Med Orders - Current: Current Medications Acetaminophen (Acetaminophen 325 Mg Tab, 50 Tab Bulk Bottle) 650 mg PO Q4H PRN PRN Reason: Pain/Fever Last Admin: 02/25/21 18:27 Dose: 650 mg Documented by: Benzocaine (Benzocaine 20% [place] 56 Gm Bottle) 0 gm TOP Q4H PRN PRN Reason: PERINEAL AREA Emollient Ointment (Lanolin 100% Cream 40 Gm Tube) 0 gm TOP ASDIRECTED PRN PRN Reason: SORE NIPPLES Hydrocortisone (Hydrocortisone 2.5% Crm 30 Gm Tube) 0 gm TOP ASDIRECTED PRN PRN Reason: Itching Ibuprofen (Ibuprofen 200 Mg Tab, 24 Tab Bulk Bottle) 600 mg PO Q6H PRN PRN Reason: Pain/Fever Last Admin: 02/25/21 18:22 Dose: 600 mg Documented by: Ondansetron HCl (Ondansetron 4 Mg/2 Ml Sdv) 4 mg IVPUSH Q4H PRN PRN Reason: Nausea/Vomiting Last Admin: 02/25/21 10:28 Dose: 4 mg Documented by: Sodium Chloride (Sodium Chloride 0.9% 10 Ml Syringe) 10 ml FLUSH ASDIRECTED PRN PRN Reason: Keep Vein Open Witch Sri (Witch Sri Medicated Pads 100/Jar) 1 pad TOP ASDIRECTED PRN PRN Reason: TO PERINEUM Discontinued Medications Benzocaine (Benzocaine 20% [place] 56 Gm Bottle) 0 gm TOP Q4H ONE Stop: 02/25/21 16:01 Last Admin: 02/25/21 18:25 Dose: 1 spray Documented by: Emollient Ointment (Lanolin 100% Cream 40 Gm Tube) 1 gm TOP ASDIRECTED ONE Stop: 02/25/21 15:31 Last Admin: 02/25/21 18:27 Dose: 1 applic Documented by: Fentanyl (Fentanyl 100 Mcg/2 Ml Sdv) 100 mcg IVPUSH Q1H PRN PRN Reason: Pain (moderate 4-6) Last Admin: 02/25/21 14:49 Dose: 50 mcg Documented by: Sodium Chloride (Normal Saline) 1,000 mls @ 999 mls/hr IV .BOLUS ONE Stop: 02/25/21 06:43 Last Admin: 02/25/21 05:53 Dose: 999 mls/hr Documented by: Penicillin G Potassium 5 (millunits/ Sodium Chloride) 100 mls @ 200 mls/hr IV ONETIME ONE Stop: 02/25/21 08:29 Last Admin: 02/25/21 08:14 Dose: 200 mls/hr Documented by: Penicillin G Potassium 2.5 (millunits/ Sodium Chloride) 50 mls @ 100 mls/hr IV Q4H JAMES Last Admin: 02/25/21 19:13 Dose: Not Given Documented by: Oxytocin/Sodium Chloride (Pitocin In Ns 20 Units/1,000 Ml) 20 unit in 1,000 mls @ 999 mls/hr IV ONETIME ONE; Protocol Stop: 02/25/21 08:49 Last Admin: 02/25/21 14:35 Dose: 999 mls/hr, 999 mls/hr Documented by: Sodium Chloride (Normal Saline) 500 mls @ 500 mls/hr IV .BOLUS ONE Stop: 02/25/21 09:59 Last Admin: 02/25/21 09:00 Dose: 500 mls/hr Documented by: Oxytocin/Sodium Chloride (Pitocin In Ns 20 Units/1,000 Ml) Confirm Administered Dose 20 unit in 1,000 mls @ as directed .ROUTE .STK-MED ONE Stop: 02/25/21 14:24 Last Admin: 02/25/21 14:47 Dose: Not Given Documented by: Lidocaine HCl (Lidocaine 1% 50 Ml Mdv) Confirm Administered Dose 100 ml .ROUTE .STK-MED ONE Stop: 02/25/21 14:40 Last Admin: 02/25/21 14:44 Dose: Not Given Documented by: Lidocaine HCl (Lidocaine 1% 50 Ml Mdv) 0 ml INJECT ONETIME ONE Stop: 02/25/21 15:31 Last Admin: 02/25/21 14:54 Dose: 50 ml Documented by: Misoprostol (Misoprostol 50 Mcg (1/2 Of 100 Mcg) Tab) Confirm Administered Dose 50 mcg .ROUTE .STK-MED ONE Stop: 02/25/21 07:42 Last Admin: 02/25/21 08:14 Dose: Not Given Documented by: Misoprostol (Misoprostol 50 Mcg (1/2 Of 100 Mcg) Tab) 50 mcg VAG ONETIME ONE Stop: 02/25/21 07:41 Last Admin: 02/25/21 07:45 Dose: 50 mcg Documented by: Misoprostol (Misoprostol 50 Mcg (1/2 Of 100 Mcg) Tab) 25 mcg VAG ONETIME ONE Stop: 02/25/21 11:39 Last Admin: 02/25/21 12:11 Dose: Not Given Documented by: Ondansetron HCl (Ondansetron 4 Mg/2 Ml Sdv) 4 mg IVPUSH ONETIME ONE Stop: 02/25/21 05:44 Last Admin: 02/25/21 05:55 Dose: 4 mg Documented by: Mireille Fierro (Mireille Fierro Medicated Pads 100/Jar) 1 pad TOP ASDIRECTED ONE Stop: 02/25/21 15:31 Last Admin: 02/25/21 18:26 Dose: 1 pad Documented by: - Interaction Disposition, : [place] in Room with Family Infant Interaction: Holding Infant Infant Feeding: Attempted ; Nursed Fair/Poor Support Person: Mother - Recovery Exam Fundal Tone: Firm Fundal Level: At Umbilicus Fundal Placement: Midline Lochia Amount: Moderate Lochia Color: Rubra/Red Perineum Description: Intact, Minimal Bruising/Swelling, Redness Episiotomy/Laceration: Approximated Bladder Status: Voiding Urinary Elimination: Voided - Exam General: Alert, Oriented HEENT: Pupils Equal, Pupils Reactive, Mucous Membr. Moist/[place] Neck: Supple Lungs: Clear to Auscultation, Normal Respiratory Effort Cardiovascular: Regular Rate, Regular Rhythm GI/Abdominal Exam: Normal Bowel Sounds, Soft, Non-Tender, No Mass, Pelvis Stable Extremities: Normal Inspection, Normal Range of Motion, Non-Tender, No Pedal Edema, Normal Capillary Refill Skin: Warm, Dry, Intact Neurological: No New Focal Deficit Psy/Mental Status: Alert, Normal Affect, Normal Mood - Problem List & Annotations (1) Active labor at term SNOMED Code(s): 70591622 Code(s): NZV9567 - Status: Acute Current Visit: Yes (2) GBS (group B Streptococcus carrier), +RV culture, currently SNOMED Code(s): 5315022084869, 482202504, 7861598418673 Code(s): O99.820 - STREPTOCOCCUS B CARRIER STATE COMPLICATING Status: Acute Current Visit: Yes (3) Normal vaginal delivery SNOMED Code(s): 11429500, 096203763 Code(s): O80 - ENCOUNTER FOR FULL-TERM UNCOMPLICATED DELIVERY Status: Acute Current Visit: Yes (4) Second degree perineal laceration SNOMED Code(s): 7844245 Code(s): O70.1 - SECOND DEGREE PERINEAL LACERATION DURING DELIVERY Status: Acute Current Visit: Yes - Problem List Review Problem List Initiated/Reviewed/Updated: Yes - Assessment Assessment:: 02/25/21 with perineal tear repaired, No other complications Male , 02/26/21 Day 1 , no complications FF and bleeding is light Perineum approximated Pain controlled going somewhat poorly, flat nipples Hgb 11.4 - Plan Plan:: 02/25/21 39 4/7 week IUP latent labor, reactive NST, CE: 380/-1 soft mid position, bishops score 10 cough and not feeling well for days GBS positive ABO O neg, had Rhogam at 29 weeks She would like to have the baby Plan Misoprostol this morning AROM after lunch Treat GBS rehydrate monitor for active labor 02/25/21 Routine cares rhogam work up GBS positive 48 hour stay support 02/26/21 Routine cares support today Anticipate discharge tomorrow Needs rhogam, baby A positive
[2021-02-27] MEDS ORDERED: Docusate Sodium 100 MG Cap PO PRN (12:22)
[2021-02-27 12:29] VITALS: BP 128/86; PULSE 59
--- NOTE | 2021-02-27 12:59 | PCM.PNPP ---
- General Info Date of Service: 02/27/21 Functional Status: Reports: Pain Controlled - Review of Systems General: Reports: No Symptoms HEENT: Reports: No Symptoms Pulmonary: Reports: No Symptoms Cardiovascular: Reports: No Symptoms Gastrointestinal: Reports: No Symptoms Genitourinary: Reports: No Symptoms Musculoskeletal: Reports: No Symptoms Skin: Reports: No Symptoms Neurological: Reports: No Symptoms Psychiatric: Reports: No Symptoms - General Info Date of Service: 02/27/21 - Patient Data Vital Signs - Most Recent: Last Vital Signs Temp 36.1 C 02/27/21 12:00 Pulse 59 L 02/27/21 12:00 Resp 18 02/27/21 12:00 BP 128/86 02/27/21 12:00 Pulse Ox 97 02/27/21 12:00 Weight - Most Recent: 95.708 kg I&O - Last 24 Hours: Intake & Output 02/26/21 02/27/21 02/27/21 22:59 06:59 14:59 Intake Total 900 900 Balance 900 900 Med Orders - Current: Current Medications Acetaminophen (Acetaminophen 325 Mg Tab, 50 Tab Bulk Bottle) 650 mg PO Q4H PRN PRN Reason: Pain/Fever Last Admin: 02/25/21 18:27 Dose: 650 mg Documented by: Benzocaine (Benzocaine 20% Top Independence 56 Gm Bottle) 0 gm TOP Q4H PRN PRN Reason: PERINEAL AREA Docusate Sodium (Docusate Sodium 100 Mg Cap) 100 mg PO BID PRN PRN Reason: Constipation Emollient Ointment (Lanolin 100% Cream 40 Gm Tube) 0 gm TOP ASDIRECTED PRN PRN Reason: SORE NIPPLES Hydrocortisone (Hydrocortisone 2.5% Crm 30 Gm Tube) 0 gm TOP ASDIRECTED PRN PRN Reason: Itching Ibuprofen (Ibuprofen 200 Mg Tab, 24 Tab Bulk Bottle) 600 mg PO Q6H PRN PRN Reason: Pain/Fever Last Admin: 02/25/21 18:22 Dose: 600 mg Documented by: Ondansetron HCl (Ondansetron 4 Mg/2 Ml Sdv) 4 mg IVPUSH Q4H PRN PRN Reason: Nausea/Vomiting Last Admin: 02/25/21 10:28 Dose: 4 mg Documented by: Sodium Chloride (Sodium Chloride 0.9% 10 Ml Syringe) 10 ml FLUSH ASDIRECTED PRN PRN Reason: Keep Vein Open Witch Sri (Witch Sri Medicated Pads 100/Jar) 1 pad TOP ASDIRECTED PRN PRN Reason: TO PERINEUM Discontinued Medications Benzocaine (Benzocaine 20% Top Independence 56 Gm Bottle) 0 gm TOP Q4H ONE Stop: 02/25/21 16:01 Last Admin: 02/25/21 18:25 Dose: 1 spray Documented by: Emollient Ointment (Lanolin 100% Cream 40 Gm Tube) 1 gm TOP ASDIRECTED ONE Stop: 02/25/21 15:31 Last Admin: 02/25/21 18:27 Dose: 1 applic Documented by: Fentanyl (Fentanyl 100 Mcg/2 Ml Sdv) 100 mcg IVPUSH Q1H PRN PRN Reason: Pain (moderate 4-6) Last Admin: 02/25/21 14:49 Dose: 50 mcg Documented by: Sodium Chloride (Normal Saline) 1,000 mls @ 999 mls/hr IV .BOLUS ONE Stop: 02/25/21 06:43 Last Admin: 02/25/21 05:53 Dose: 999 mls/hr Documented by: Penicillin G Potassium 5 (millunits/ Sodium Chloride) 100 mls @ 200 mls/hr IV ONETIME ONE Stop: 02/25/21 08:29 Last Admin: 02/25/21 08:14 Dose: 200 mls/hr Documented by: Penicillin G Potassium 2.5 (millunits/ Sodium Chloride) 50 mls @ 100 mls/hr IV Q4H JAMES Last Admin: 02/25/21 19:13 Dose: Not Given Documented by: Oxytocin/Sodium Chloride (Pitocin In Ns 20 Units/1,000 Ml) 20 unit in 1,000 mls @ 999 mls/hr IV ONETIME ONE; Protocol Stop: 02/25/21 08:49 Last Admin: 02/25/21 14:35 Dose: 999 mls/hr, 999 mls/hr Documented by: Sodium Chloride (Normal Saline) 500 mls @ 500 mls/hr IV .BOLUS ONE Stop: 02/25/21 09:59 Last Admin: 02/25/21 09:00 Dose: 500 mls/hr Documented by: Oxytocin/Sodium Chloride (Pitocin In Ns 20 Units/1,000 Ml) Confirm Administered Dose 20 unit in 1,000 mls @ as directed .ROUTE .K-MED ONE Stop: 02/25/21 14:24 Last Admin: 02/25/21 14:47 Dose: Not Given Documented by: Lidocaine HCl (Lidocaine 1% 50 Ml Mdv) Confirm Administered Dose 100 ml .ROUTE .STK-MED ONE Stop: 02/25/21 14:40 Last Admin: 02/25/21 14:44 Dose: Not Given Documented by: Lidocaine HCl (Lidocaine 1% 50 Ml Mdv) 0 ml INJECT ONETIME ONE Stop: 02/25/21 15:31 Last Admin: 02/25/21 14:54 Dose: 50 ml Documented by: Misoprostol (Misoprostol 50 Mcg (1/2 Of 100 Mcg) Tab) Confirm Administered Dose 50 mcg .ROUTE .STK-MED ONE Stop: 02/25/21 07:42 Last Admin: 02/25/21 08:14 Dose: Not Given Documented by: Misoprostol (Misoprostol 50 Mcg (1/2 Of 100 Mcg) Tab) 50 mcg VAG ONETIME ONE Stop: 02/25/21 07:41 Last Admin: 02/25/21 07:45 Dose: 50 mcg Documented by: Misoprostol (Misoprostol 50 Mcg (1/2 Of 100 Mcg) Tab) 25 mcg VAG ONETIME ONE Stop: 02/25/21 11:39 Last Admin: 02/25/21 12:11 Dose: Not Given Documented by: Ondansetron HCl (Ondansetron 4 Mg/2 Ml Sdv) 4 mg IVPUSH ONETIME ONE Stop: 02/25/21 05:44 Last Admin: 02/25/21 05:55 Dose: 4 mg Documented by: Mireille Fierro (Mireille Fierro Medicated Pads 100/Jar) 1 pad TOP ASDIRECTED ONE Stop: 02/25/21 15:31 Last Admin: 02/25/21 18:26 Dose: 1 pad Documented by: - Interaction Infant Disposition, : in Room with Family Interaction: Holding Feeding: Attempted ; Nursed Fair/Poor Support Person: Mother - Recovery Exam Fundal Tone: Firm Fundal Level: 2 Fingerbreadths Below Umbilicus Fundal Placement: Midline Lochia Amount: Small Lochia Color: Rubra/Red Perineum Description: Intact, Minimal Bruising/Swelling Episiotomy/Laceration: Approximated Bladder Status: Voiding Urinary Elimination: Voided - Exam General: Alert, Oriented HEENT: Pupils Equal Neck: Supple Lungs: Clear to Auscultation, Normal Respiratory Effort Cardiovascular: Regular Rate, Regular Rhythm GI/Abdominal Exam: Normal Bowel Sounds, Soft, Non-Tender, No Organomegaly, No Distention, No Abnormal Bruit, No Mass, Pelvis Stable Extremities: Normal Inspection, Normal Range of Motion, Non-Tender, No Pedal Edema, Normal Capillary Refill Skin: Warm, Dry, Intact Wound/Incisions: Healing Well Neurological: No New Focal Deficit Psy/Mental Status: Alert, Normal Affect, Normal Mood - Problem List & Annotations (1) GBS (group B Streptococcus carrier), +RV culture, currently SNOMED Code(s): 0571284425563, 014790245, 8881925319767 Code(s): O99.820 - STREPTOCOCCUS B CARRIER STATE COMPLICATING Status: Acute Current Visit: Yes (2) Normal vaginal delivery SNOMED Code(s): 77475074, 525822637 Code(s): O80 - ENCOUNTER FOR FULL-TERM UNCOMPLICATED DELIVERY Status: Acute Current Visit: Yes (3) Second degree perineal laceration SNOMED Code(s): 1494629 Code(s): O70.1 - SECOND DEGREE PERINEAL LACERATION DURING DELIVERY Status: Acute Current Visit: Yes - Problem List Review Problem List Initiated/Reviewed/Updated: Yes - My Orders Last 24 Hours: My Active Orders 02/27/21 12:22 Docusate Sodium [Colace] 100 mg PO BID PRN - Assessment Assessment:: 02/25/21 with perineal tear repaired, No other complications Male , 02/26/21 Day 1 , no complications FF and bleeding is light Perineum approximated Pain controlled going somewhat poorly, flat nipples Hgb 11.4 02/27/21 Day Two, no complications Fundus firm and bleeding decreasing Perineum approximated, slightly swollen Pain controlled going better, flat nipples, using shield GBS positive discharge at 48 hrs - Plan Plan:: 02/25/21 39 4/7 week IUP latent labor, reactive NST, CE: /-1 soft mid position, bishops score 10 cough and not feeling well for days GBS positive ABO O neg, had Rhogam at 29 weeks She would like to have the baby Plan Misoprostol this morning AROM after lunch Treat GBS rehydrate monitor for active labor 02/25/21 Routine cares rhogam work up GBS positive 48 hour stay support 02/26/21 Routine cares support today Anticipate discharge tomorrow Needs tonya, baby A positive 02/27/21 Continue routine cares Continue support Discharge home today To see Wendy in clinic in six weeks for visit
== END 2021-02-27 15:35 | disposition home or self-care (01) | DRG 807 ==
LOC: JP.OBCHECK 04:35 → JP.OB 07:38 → OBSVTOIN 14:31 → JP.OB 14:31 → JP.MS 16:04
PROVIDERS: ADMIT Nurse Practitioner Family; ATTEND Nurse Practitioner Family
PROC: 10E0XZZ Delivery of Products of Conception, External Approach (ICD-10-PCS; principal; 2021-02-25)
PROC: 0KQM0ZZ Repair Perineum Muscle, Open Approach (ICD-10-PCS; 2021-02-25)
PROC: 10907ZC Drainage of Amniotic Fluid, Therapeutic from Products of Conception, Via Natural or Artificial Opening (ICD-10-PCS; 2021-02-25)
PROC: 3E0P7VZ Introduction of Hormone into Female Reproductive, Via Natural or Artificial Opening (ICD-10-PCS; 2021-02-25)
DX: O99.824 Streptococcus B carrier state complicating childbirth (principal); Z37.0 Single live birth; Z3A.39 39 weeks gestation of pregnancy; O70.1 Second degree perineal laceration during delivery
CPT/HCPCS: 36415; 80305-QW; 81001; 85027; 85460; 86850; 86900; 86901; 99211; A9270-GY; J2001; J2405; J2540; J2590; J2790; J3010; J7030; J7040

== ENCOUNTER 2023-05-29 13:57 | Emergency (ER) | payer MEDICAID | END 2023-05-29 16:25 | disposition left against medical advice (07) | LOC: JP.ED 13:57 | DX: Z53.21 Procedure and treatment not carried out due to patient leaving prior to being seen by health care provider (principal) ==

== ENCOUNTER 2024-04-22 18:28 | Emergency (ER) | payer MEDICAID ==
[2024-04-22 18:40] VITALS: BP 137/90; PULSE 58
== END 2024-04-22 20:08 | disposition left against medical advice (07) ==
LOC: JP.ED 18:28
DX: Z53.21 Procedure and treatment not carried out due to patient leaving prior to being seen by health care provider (principal)

== ENCOUNTER 2025-02-04 21:40 | Emergency (ER) | payer MEDICAID ==
[2025-02-04 22:17] LABS: BASOPHILS ABSOLUTE AUTO 0.03 K/uL (0.00-0.10); BASOPHILS PERCENT AUTO 0.2 % (0.1-1.3); EOSINOPHILS PERCENT AUTO 0.7 % (0.0-5.4); HEMATOCRIT 36.5 % (34.3-46.0); HEMOGLOBIN 12.3 g/dL (11.2-15.5); IMMATURE GRAN ABSOLUTE AUTO 0.05 K/uL (0.00-0.23); IMMATURE GRAN PERCENT AUTO 0.3 % (0.0-0.7); LYMPHOCYTES ABSOLUTE AUTO 3.52 K/uL (0.8-3.3); LYMPHOCYTES PERCENT AUTO 24.5 % (11.4-47.7); MEAN CORPUSCULAR HEMOGLOBIN 28.2 pg (31.6-35.5); MEAN CORPUSCULAR HGB CONC 33.7 g/dL (31.6-35.5); MEAN CORPUSCULAR VOLUME 83.7 fL (81.4-99.0); MONOCYTES ABSOLUTE AUTO 0.88 K/uL (0.20-0.90); MONOCYTES PERCENT AUTO 6.1 % (3.3-12.6); NEUTROPHILS ABSOLUTE AUTO 9.77 K/uL (1.0-7.6); NEUTROPHILS PERCENT AUTO 68.2 % (40.0-78.1); PLATELET COUNT,PLT 260 K/uL (130-375); RED BLOOD CELL COUNT 4.36 M/uL (3.77-5.24); WHITE BLOOD CELL COUNT,WBC 14.4 K/uL (3.2-11.0)
[2025-02-04 22:34] LABS: CALCIUM 9.1 mg/dL (8.5-10.1); CREATININE 0.6 mg/dL (0.6-1.0); EST CRCL DRUG DOSING (CG) 131.85 mL/min; POTASSIUM,K 3.4 mmol/L (3.6-5.2)
[2025-02-04 22:46] LABS: ANION GAP 13.4 mmol/L (5.0-14.0)
[2025-02-05 00:59] VITALS: BP 130/65; PULSE 67
== END 2025-02-05 01:18 | disposition home or self-care (01) ==
LOC: JP.ED 21:40
DX: O20.8 Other hemorrhage in early pregnancy (principal); Z3A.08 8 weeks gestation of pregnancy; Z79.899 Other long term (current) drug therapy; Z91.040 Latex allergy status
CPT/HCPCS: 36415; 76817; 80048; 84702; 85025; 86900; 86901; 96372; 99284; J2791; 99283

== ENCOUNTER 2025-07-27 22:49 | Emergency (ER) | payer MEDICAID ==
[2025-07-27 23:10] VITALS: BP 119/76; PULSE 85
== END 2025-07-27 23:53 ==
LOC: JP.ED 22:49
DX: O46.93 Antepartum hemorrhage, unspecified, third trimester (principal); O99.213 Obesity complicating pregnancy, third trimester; E66.9 Obesity, unspecified; Z91.040 Latex allergy status; Z3A.33 33 weeks gestation of pregnancy
CPT/HCPCS: 99284